=== PATIENT | female | born 1940 | race Caucasian/White ===

== ENCOUNTER 2016-12-11 09:56 | Outpatient (CLI) | payer MEDICARE, MEDICAID ==
--- NOTE | 2016-12-11 15:52 | Diagnostic Imaging Report ---
Lumbar spine (5 views) HISTORY: Pain There is severe generalized osteoporosis throughout the spine. There is partial compression involving the bodies of L1 and L2. Mild spondylolisthesis of L4 on L5. Disc spaces are relatively maintained. Spur formation noted about the endplates of all vertebrae. Hypertrophic changes noted about the facet joints at all levels. Atherosclerotic calcification seen in the aorta. IMPRESSION: 1. Generalized osteoporosis 2. Partial compression involving the bodies of L1-L2 3. Diffuse degenerative changes 4. Atherosclerotic vascular changes
--- NOTE | 2016-12-11 15:53 | Diagnostic Imaging Report ---
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 Severe sclerotic changes noted along the articular and subarticular region of the left femoral head along with cystic changes. Underlying avascular necrosis cannot be excluded. Degenerative changes seen in the visualized lumbar spine. IMPRESSION: 1. 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 Changes associated with avascular necrosis cannot be excluded.
--- NOTE | 2016-12-11 15:54 | Diagnostic Imaging Report ---
Right hip (3 views) HISTORY: Pain Joint space appears normal. Femoral head exhibits a normal contour. No focal lesions. IMPRESSION: No acute abnormalities
== END 2016-12-11 10:40 | disposition home or self-care (01) ==
LOC: RAD 09:56
PROVIDERS: ATTEND Family Medicine
DX: M51.37 Other intervertebral disc degeneration, lumbosacral region (principal); S72.002A Fracture of unspecified part of neck of left femur, initial encounter for closed fracture; S72.001A Fracture of unspecified part of neck of right femur, initial encounter for closed fracture; X58.XXXA Exposure to other specified factors, initial encounter; Y93.89 Activity, other specified; Y92.89 Other specified places as the place of occurrence of the external cause; Y99.8 Other external cause status
CPT/HCPCS: 72110-TC